=== PATIENT | male | born 1950 ===

== ENCOUNTER 2018-12-07 04:59 | Emergency (ER) | payer MEDICAID ==
[2018-12-07 05:17] VITALS: TEMP 97.6
[2018-12-07 05:25] VITALS: BP 124/81; PULSE 86; RESP 20; O2SAT 98
--- NOTE | 2018-12-07 06:01 | C.PDOC ---
History Of Present Illness Patient presents with anxiety. Denies chest pain, palpitations, or SOB. Patient felt his BP was high and came in, here patient's blood pressure is within normal limits, no ectope, sinus rhythm on the monitor. Time Seen by Provider: 12/07/18 06:01 Chief Complaint (Nursing): High Blood Pressure History Per: Patient History/Exam Limitations: no limitations Onset/Duration Of Symptoms: Hrs Current Symptoms Are (Timing): Gone Severity: Moderate Pain Scale Rating Of: 4 Exacerbating Factor(s): Pos: None Recent travel outside of the [place]: No Past Medical History Reviewed: Historical Data, Nursing Documentation, Vital Signs Vital Signs: Last Vital Signs Temp 97.6 F 12/07/18 05:07 Pulse 86 12/07/18 05:25 Resp 20 12/07/18 05:25 BP 124/81 12/07/18 05:25 Pulse Ox 98 12/07/18 05:25 - Medical History PMH: Anxiety, Diabetes, HTN, Hyperlipidemia Denies: Hepatitis, HIV, Chronic Kidney Disease, Seizures, Sexually Tra nsmitted Disease Surgical History: Appendectomy Family History: States: No Known Family Hx - Social History Hx Alcohol Use: No Hx Substance Use: No - Immunization History Hx Tetanus Toxoid Vaccination: No Hx Influenza Vaccination: Yes Hx Pneumococcal Vaccination: No Review Of Systems Constitutional: Negative for: Fever, Chills Cardiovascular: Negative for: Chest Pain, Palpitations Respiratory: Negative for: Cough, Shortness of Breath Gastrointestinal: Negative for: Nausea, Vomiting Neurological: Negative for: Weakness, Numbness Psych: Positive for: Anxiety Physical Exam - Physical Exam Appears: Non-toxic Skin: Warm, Dry Head: Normacephalic Oral Mucosa: Moist Neck: Trachea Midline, Supple Chest: Symmetrical, No Tenderness Cardiovascular: Rhythm Regular Respiratory: No Rales, No Rhonchi, No Wheezing Gastrointestinal/Abdominal: Soft, No Tenderness Neurological/Psych: Oriented x3 ED Course And Treatment O2 Sat by Pulse Oximetry: 98 Medical Decision Making Medical Decision Making: Upon provider reevaluation patient is feeling better, is medically stable, and requires no further treatment in the ED at this time. Patient will be discharged home . Counseling was provided and all questions were answered regarding diagnosis and need for follow up with dr holden. There is agreement to discharge plan. Return if symptoms persist or worsen. Disposition Counseled Patient/Family Regarding: Studies Performed, Diagnosis, Need For Followup - Disposition Referrals: Jacobo Garcias MD [Medical Doctor] - Disposition: HOME/ ROUTINE Disposition Time: 06:01 Condition: FAIR Instructions: Anxiety, Adult (DC) Forms: [employer] (Estonian) Print Language: BURUNDIAN - Clinical Impression Clinical Impression: Anxiety - Scribe Statement The provider has reviewed the documentation as recorded by the Scribe Stephan Jaramillo All medical record entries made by the Scribe were at my direction and personally dictated by me. I have reviewed the chart and agree that the record accurately reflects my personal performance of the history, physical exam, medical decision making, and the department course for this patient. I have also personally directed, reviewed, and agree with the discharge instructions and disposition.
== END 2018-12-07 06:15 | disposition home or self-care (01) ==
LOC: C.ER 04:59
DX: F41.9 Anxiety disorder, unspecified (principal)